=== PATIENT | female | born 1970 | race Caucasian/White ===

== ENCOUNTER 2025-09-15 12:58 | Outpatient (CLI) | payer OTHER, SELFPAY ==
--- NOTE | ~2025-09-15 | US_ITS ---
EXAMINATION: US thyroid DATE: 09/15/2025 13:12 INDICATION: Autoimmune thyroiditis TECHNIQUE: Multiple ultrasound images of the thyroid were obtained. COMPARISON: None. FINDINGS: The right thyroid lobe measures 4.4 x 1.9 x 1.5 cm. The left thyroid lobe measures 4.2 x 1.9 x 1.6 cm. No discrete nodules identified. There is heterogeneously decreased echogenicity with coarsened echotexture and diffuse increased vascular flow on color Doppler throughout the thyroid suggestive of t hyroiditis. IMPRESSION: 1. Diffuse heterogeneous echogenicity with coarsened echotexture and increased vascular flow throughout the thyroid without discrete nodules consistent with thyroiditis. Reviewed, dictated and finalized at location A. IMPRESSION: 1. Diffuse heterogeneous echogenicity with coarsened echotexture and increased vascular flow throughout the thyroid without discrete nodules consistent with t hyroiditis.
== END 2025-09-15 12:59 | disposition home or self-care (01) ==
LOC: GOSHIMG 12:59
PROVIDERS: PCP Nurse Practitioner Adult Health; Visit Provider Nurse Practitioner Adult Health
DX: E06.3 Autoimmune thyroiditis (principal)
CPT/HCPCS: 76536

== ENCOUNTER 2025-10-24 14:28 | Outpatient (CLI) | payer OTHER, SELFPAY ==
--- NOTE | ~2025-10-24 | MM_ITS ---
EXAMINATION: MM screening filomena BI w kathryn HISTORY: Screening. TECHNIQUE: Craniocaudal and mediolateral oblique 3-D tomosynthesis images were obtained and synthetic 2-D images were generated. CAD analysis was submitted and interpreted. COMPARISON: 2011 and 2010 BREAST PARENCHYMAL COMPOSITION: Not Dense: The breasts are almost entirely fatty FINDINGS: No suspicious masses are seen. There are no suspicious calcifications. No unexplained architectural distortion is seen. There are no skin or nipple abnormalities identified. There is no adenopathy seen on the images submitted. IMPRESSION: No mammographic evidence to suggest malignancy is seen. The patient may return to screening mammography as per ACR guidelines. BI-RADS 1 - Negative. Reviewed, dictated and finalized at location B. [employer]
== END 2025-10-24 14:29 | disposition home or self-care (01) ==
LOC: ANHFOHIMG 14:30
PROVIDERS: PCP Nurse Practitioner Adult Health; Visit Provider Nurse Practitioner Adult Health
DX: Z12.31 Encounter for screening mammogram for malignant neoplasm of breast (principal)
CPT/HCPCS: 77063; 77067